=== PATIENT | female | born 1985 | race Caucasian/White ===

== ENCOUNTER → 2016-10-29 | Outpatient (CLI) | payer OTHER ==
[~2016-10-29] MED LIST: AMOX1TAB64 PO; HYDR-3241 PO; METH750T2 PO; OMEP-110 PO; ONDA8TAB9 PO
[2016-10-29 16:52] LABS: BLOOD UREA NITROGEN 9 mg/dL (7-18); TOTAL IRON BINDING CAPACITY 370 mcg/dL (250-450)
[2016-10-29 17:21] LABS: ASPARTATE AMINO TRANSFERASE 10 U/L (15-37); TRANSFERRIN 290 mg/dL (200-360)
== END | disposition home or self-care (01) ==
LOC: STAR 15:44
PROVIDERS: ATTEND Surgery
DX: Z01.818 Encounter for other preprocedural examination (principal)
CPT/HCPCS: 36415; 71020; 80053; 82306; 82607; 82728; 82746; 83540; 83550; 83970; 84134; 84425; 84466; 85025; 93005